=== PATIENT | female | born 1970 | race Caucasian/White ===

== ENCOUNTER 2019-10-13 20:21 | Emergency (ER) | payer OTHER, SELFPAY | END 2019-10-13 22:14 | disposition left against medical advice (07) | PROVIDERS: Emergency Provider Emergency Medicine; PCP Family Medicine | DX: Z53.8 Procedure and treatment not carried out for other reasons (principal) | CPT/HCPCS: 99199 ==

== ENCOUNTER 2020-10-05 18:10 | Emergency (ER) | payer OTHER, SELFPAY ==
[2020-10-05 18:15] VITALS: BP 119/71; PULSE 61; RESP 17; TEMP 36.7; O2SAT 99
[2020-10-05] MEDS: SODIUM CHLORIDE 0.9% IV 1,000 ML 999 ML IV CONT (18:45)
[2020-10-05] MEDS: ONDANSETRON INJ 4 MG/2 ML VIAL IV PUSH (18:45)
[2020-10-05 19:00] VITALS: BP 122/70; PULSE 80; RESP 18
[2020-10-05 19:09] LABS: Basophils Absolute Auto 0.01 K/mm3 (0.00-0.10); Basophils Percent Auto 0.1 % (0.0-1.0); Eosinophils Absolute Auto 0.01 K/mm3 (0.02-0.50); Eosinophils Percent Auto 0.1 % (1.0-6.0); Hematocrit 44.4 % (35.0-49.0); Hemoglobin 14.9 g/dL (12.0-15.0); Immature Granulocyte Absolute 0.04 K/mm3 (0.00-0.00); Immature Granulocyte Percent A 0.4 % (0.0-0.0); Lymphocytes Absolute Auto 2.93 K/mm3 (1.10-4.50); Lymphocytes Percent Auto 26.6 % (18.0-42.0); Mean Corpuscular HGB Conc 33.6 g/dL (32.0-36.0); Mean Corpuscular Hemoglobin 29.8 pg (27.0-31.0); Mean Corpuscular Volume 88.8 fL (78.0-102.0); Mean Platelet Volume 11.3 fl (9.2-11.8); Monocytes Absolute Auto 0.98 K/mm3 (0.10-0.90); Monocytes Percent Auto 8.9 % (2.0-11.0); Neutrophils Percent Auto 63.9 % (50.0-70.0); Platelet Count Result 319 K/mm3 (150-420); Red Cell Distribution Width 12.6 % (11.6-14.4)
--- NOTE | 2020-10-05 19:12 | ED.NAVMDI ---
HPI - Nausea/Vomiting/Diarrhea General Chief complaint: Nausea/Vomiting/Diarrhea Stated complaint: sick to stomach, headache Source: patient Mode of arrival: ambulatory Limitations: no limitations History of Present Illness HPI Narrative: 2 days of not feeling well. has ab cramps, nausea and diarrhea. has felt hot but no fevers. No resp sxs. mild headache, urinating more than normal. SUgars have been higher than normal, she usually rund in 200's and today it was 300. MD elicited complaint: nausea, diarrhea and abdominal pain (cramping) Onset (ago): day(s) (2) Location of pain: diffuse (cramping) Pain consistency: intermittent Severity: moderate Quality: cramping Exacerbating factors: none Relieving factors: none Associated symptoms: denies other symptoms, headaches and nausea/vomiting Treatment prior to arrival: other (taken pepto) Related Data Home Medications Medication Instructions Recorded Confirmed buspirone 15 mg PO DAILY 10/05/20 10/05/20 clonidine HCl 0.1 mg PO BID 10/05/20 10/05/20 gabapentin 800 mg PO TID 10/05/20 10/05/20 insulin glargine [Lantus Solostar 130 unit SUBCUT HS 10/05/20 10/05/20 U-100 Insulin] insulin lispro [Humalog KwikPen 30 unit SUBCUT TID 10/05/20 10/05/20 Insulin] metoprolol succinate 100 mg PO DAILY 10/05/20 10/05/20 naproxen 500 mg PO BID 10/05/20 10/05/20 olanzapine 20 mg PO DAILY 10/05/20 10/05/20 Allergies Allergy/AdvReac Type Severity Reaction Status Date / Time No Known Allergies Allergy Verified 10/05/20 18:27 Review of Systems Review of Systems: All systems reviewed & are unremarkable except as noted in HPI and below Constitutional: Constitutional: Denies chills, Reports fatigue, Denies fever(s) and Denies weakness Eyes: Eyes: Reports no additional eye complaints ENT: Reports system reviewed and no additional complaints, except as documented Cardiovascular: Cardiovascular: Reports no additional cardiovascular complaints Respiratory: Respiratory: Reports no additional respiratory complaints Gastrointestinal: Gastrointestinal: Reports abdominal pain, Denies bloating, Denies constipation, Reports heartburn, Reports diarrhea, Reports nausea and Reports vomiting Genitourinary: Genitourinary: Denies hematuria, Reports nocturia and Denies flank pain Musculoskeletal: Musculoskeletal: Reports no additional musculoskeletal complaints Neurologic: Reports system reviewed and no additional complaints, except as documented Psychiatric: Psychiatric: Reports no additional psychiatric complaints Endocrine: Endocrine: Reports no additional endocrine complaints Hematologic/Lymphatic: Hematologic/Lymphatic: Reports no additional hematologic/lymphatic complaints Allergic/Immunologic: Allergic/Immunologic: Reports no additional allergic/immunologic complaints PMF Past Medical History Medical History (Updated 10/05/20 @ 20:04 by Estefanía Donnelly MD) Diabetes Social History Social History (Updated 10/05/20 @ 19:17 by Estefanía Donnelly MD) Alcohol intake: never Substance use: never Living arrangements: with family Exam Const: General: healthy appearing, no acute distress and alert Nutritional Appearance: well nourished and obese Orientation/consciousness: patient oriented x3 HENMT: Head: normal to inspection Mouth: Yes moist mucous membranes Eyes: Pupils: Equal, round and reactive pupils present EOM: EOMs intact bilaterally Neck: Neck: normal visual inspection Chest: Chest palpation & inspection: normal inspection of the chest Resp: Effort & Inspection: normal respiratory effort Auscultation: clear to auscultation bilaterally Cardio: Rate: regular rate Rhythm: regular rhythm GI: GI Palp: Yes Soft to palpation and Yes Tenderness to palpation present (GI) (very mild discomfort generalized throughout abdomen) : General: Yes no CVA tenderness Back/Spine/Pelvis: Back: no CVA tenderness Skin: General skin exam: normal color Rash
[2020-10-05 19:23] LABS: Alanine Aminotransferase 23 U/L (14-59); Albumin Level 3.3 g/dL (3.4-5.0); Alkaline Phosphatase 275 U/L (46-116); Anion Gap 11 mmol/L (8-16); Aspartate Amino Transferase 10 U/L (15-37); Bilirubin,Total 0.2 mg/dL (0.00-1.00); Blood Urea Nitrogen 6 mg/dL (7-18); Calcium 8.9 mg/dL (8.5-10.1); Carbon Dioxide 27 mmol/L (21-32); Chloride 104 mmol/L (98-108); Estimated Glomerular Filt Rate > 60; Glucose 92 mg/dL (70-99); Lipase 118 U/L (73-393); Osmolality Calculated 291 mOsm/kg (285-295); Potassium 4.1 mmol/L (3.5-5.1); Sodium 142 mmol/L (136-145); Total Protein 6.9 g/dL (6.4-8.2)
[2020-10-05 19:27] LABS: SARS-CoV-2 RNA PCR Negative
[2020-10-05 19:54] LABS: Add Urine Microscopic? YES; Appearance Urine Clear (Clear); Bilirubin Urine Negative (Negative); Blood Urine Negative (Negative); Color Urine Yellow (Yellow); Glucose Urine UA Negative (Negative); Ketones Urine Trace (Negative); Leukocyte Esterase Ur Negative LEU/UL (Negative); Nitrate Urine Negative (Negative); Protein Urine Negative (Negative); Specific Grav Ur >= 1.030 (1.010-1.020); Urobilinogen Urine 0.2 mg/dL (0.2-1.0); pH Urine 5.5 (5.0-8.0)
[2020-10-05 19:55] LABS: RBC Urine 0-2 /hpf (0-2); WBC Urine 0-3 /hpf (0-3)
[2020-10-05 19:56] LABS: Bacteria Urine Trace /hpf; Squamous Epithelial Cell Urine Rare /hpf (Few)
[2020-10-05 20:08] VITALS: BP 122/70; PULSE 88; RESP 18; TEMP 36.6
== END 2020-10-05 20:12 | disposition home or self-care (01) ==
PROVIDERS: Emergency Provider Emergency Medicine; PCP Family Medicine
DX: K52.9 Noninfective gastroenteritis and colitis, unspecified (principal); Z20.822 Contact with and (suspected) exposure to COVID-19
CPT/HCPCS: 36415; 80053; 81001; 83690; 85025; 96361; 96374; 99283; 99284; C9803; J2405; J7030; U0003; U0005

== ENCOUNTER 2020-10-16 12:03 | Outpatient (CLI) | payer OTHER, SELFPAY ==
--- NOTE | ~2020-10-16 | XR_ITS ---
XR abdomen obstructive series DATE: 10/16/2020 12:35 INDICATION: Abdominal pain, nausea TECHNIQUE: Supine and upright AP views COMPARISON: None FINDINGS: The psoas shadows are intact. No visceromegaly is evident. There is no evidence of bowel ob struction. There is a fairly prominent amount of fecal material in the rectum and colon. No intraperitoneal free air. Multiple calcified pelvic phleboliths. Mild levoscoliosis and multilevel degenerative disc disease of the lumbar spine. IMPRESSION: Moderately prominent amount of fecal material in the colon and rectum but no evidence of bowel obstruction No intraperitoneal free air Reviewed, dictated and finalized at [facility]. Reviewed, dictated and finalized at location A. LE INSTALLER SUPERVISOR IMPRESSION: Moderately prominent amount of fecal material in the colon and rect um but no evidence of bowel obstruction No intraperitoneal free air
[2020-10-16 12:49] LABS: Basophils Absolute Auto 0.01 K/mm3 (0.00-0.10); Basophils Percent Auto 0.1 % (0.0-1.0); Eosinophils Absolute Auto 0.04 K/mm3 (0.02-0.50); Eosinophils Percent Auto 0.4 % (1.0-6.0); Hematocrit 44.8 % (35.0-49.0); Hemoglobin 15.1 g/dL (12.0-15.0); Immature Granulocyte Absolute 0.04 K/mm3 (0.00-0.00); Immature Granulocyte Percent A 0.4 % (0.0-0.0); Lymphocytes Absolute Auto 3.93 K/mm3 (1.10-4.50); Lymphocytes Percent Auto 34.9 % (18.0-42.0); Mean Corpuscular HGB Conc 33.7 g/dL (32.0-36.0); Mean Corpuscular Hemoglobin 30.1 pg (27.0-31.0); Mean Corpuscular Volume 89.2 fL (78.0-102.0); Mean Platelet Volume 11.7 fl (9.2-11.8); Monocytes Absolute Auto 1.05 K/mm3 (0.10-0.90); Monocytes Percent Auto 9.3 % (2.0-11.0); Neutrophils Absolute Auto 6.2 K/mm3 (1.7-7.2); Neutrophils Percent Auto 54.9 % (50.0-70.0); Platelet Count Result 290 K/mm3 (150-420); Red Blood Count 5.02 M/mm3 (4.20-5.40); Red Cell Distribution Width 12.7 % (11.6-14.4); White Blood Count 11.3 K/mm3 (4.8-10.8)
[2020-10-16 12:51] LABS: Add Urine Microscopic? NO; Appearance Urine Clear (Clear); Bilirubin Urine Negative (Negative); Blood Urine Negative (Negative); Color Urine Yellow (Yellow); Glucose Urine UA Negative (Negative); Ketones Urine Negative (Negative); Leukocyte Esterase Ur Negative (Negative); Nitrate Urine Negative (Negative); Protein Urine Negative (Negative); Specific Grav Ur >= 1.030 (1.010-1.020); Urobilinogen Urine 0.2 mg/dL (0.2-1.0)
[2020-10-16 13:11] LABS: Alanine Aminotransferase 29 U/L (14-59); Albumin Level 3.6 g/dL (3.4-5.0); Alkaline Phosphatase 376 U/L (46-116); Amylase 48 U/L (25-115); Anion Gap 10 mmol/L (8-16); Aspartate Amino Transferase 21 U/L (15-37); Bilirubin,Total 0.3 mg/dL (0.00-1.00); Blood Urea Nitrogen 9 mg/dL (7-18); Calcium 9.3 mg/dL (8.5-10.1); Carbon Dioxide 31 mmol/L (21-32); Chloride 102 mmol/L (98-108); Estimated Glomerular Filt Rate 57; Glucose 234 mg/dL (70-99); Lipase 136 U/L (73-393); Osmolality Calculated 302 mOsm/kg (285-295); Potassium 3.7 mmol/L (3.5-5.1); Sodium 143 mmol/L (136-145); Total Protein 6.8 g/dL (6.4-8.2)
[2020-10-16 15:34] LABS: Hemoglobin A1C 6.7 % (<5.7)
[2020-10-17] LABS: SARS-CoV-2 RNA PCR Negative
== END 2020-10-16 12:04 | disposition home or self-care (01) ==
PROVIDERS: PCP Family Medicine; Visit Provider Family Medicine
DX: R10.84 Generalized abdominal pain (principal); R51.9 Headache, unspecified; N39.46 Mixed incontinence; E10.65 Type 1 diabetes mellitus with hyperglycemia
CPT/HCPCS: 36415; 74019; 80053; 81003; 82150; 83036; 83690; 85025; 87077; 87086; 87088; C9803; U0003; U0005

== ENCOUNTER 2021-01-10 10:15 | Outpatient (CLI) | payer OTHER, SELFPAY ==
--- NOTE | ~2021-01-10 | XR_ITS ---
EXAMINATION: XR abdomen obstructive series EXAM DATE: 01/10/2021 11:04 INDICATION: Constipation for one month. TECHNIQUE: Frontal upright projection of the upper abdomen, frontal projection of the lower abdomen f or interpretation. Comparison is made to prior examination from 10/16/2020. FINDINGS: There is expected amount of colonic stool and gas. No small bowel dilation, nonobstructiv e bowel gas pattern. Calcifications in the pelvis are believed to be phleboliths. There is no orga nomegaly suspected. Mild to moderate lumbar levoscoliosis. Mild to moderate lumbar spondylosis and b ilateral hip primary osteoarthritis. There is no free intraperitoneal air. The lung bases are clear. IMPRESSION: Unremarkable bowel gas pattern. Reviewed, dictated and finalized at location A.
--- NOTE | ~2021-01-10 | XR_ITS ---
EXAMINATION: XR lumbar spine 2-3V EXAM DATE: 01/10/2021 11:05 INDICATION: LBP and down RT leg after twisting injury 1.5mo ago. TECHNIQUE: Lumber spine frontal, lateral, lateral L5-S1 projections for interpretation. Comparison is made to prior examination from 03/28/2014. FINDINGS: There are no acute fractures identified. The vertebral bodies are aligned in the AP dimen jose. There is mild upper lumbar levoscoliosis centered at the L2-3 level, where there is moderate di sc disease and moderate sized bridging endplate osteophytes. Moderate disc disease at L1-2 as well, o therwise mild lower lumbar disc disease. There is mild to moderate upper lumbar, moderate to severe l ower lumbar facet arthropathy. Sacrum, sacroiliac joints, sacral arcuate lines are intact. Paraspinal soft tissue is unremarkable. Compared to 2013, significant progression in spondylosis. IMPRESSION: 1. Moderate to severe lower lumbar facet arthropathy. 2. Moderate disc disease L-1-2 and L2-3. 3. Mild levoscoliosis. Reviewed, dictated and finalized at location A.
[2021-01-10 10:44] LABS: Add Urine Microscopic? YES; Appearance Urine Clear (Clear); Basophils Absolute Auto 0.01 K/mm3 (0.00-0.10); Basophils Percent Auto 0.1 % (0.0-1.0); Bilirubin Urine Negative (Negative); Blood Urine Negative (Negative); Color Urine Yellow (Yellow); Eosinophils Absolute Auto 0.02 K/mm3 (0.02-0.50); Eosinophils Percent Auto 0.1 % (1.0-6.0); Glucose Urine UA Negative (Negative); Hemoglobin 15.9 g/dL (12.0-15.0); Immature Granulocyte Absolute 0.06 K/mm3 (0.00-0.00); Immature Granulocyte Percent A 0.4 % (0.0-0.0); Ketones Urine Negative (Negative); Leukocyte Esterase Ur Trace (Negative); Mean Corpuscular HGB Conc 33.8 g/dL (32.0-36.0); Mean Corpuscular Hemoglobin 29.7 pg (27.0-31.0); Mean Corpuscular Volume 87.7 fL (78.0-102.0); Mean Platelet Volume 11.4 fl (9.2-11.8); Monocytes Absolute Auto 1.01 K/mm3 (0.10-0.90); Monocytes Percent Auto 7.5 % (2.0-11.0); Neutrophils Absolute Auto 8.5 K/mm3 (1.7-7.2); Neutrophils Percent Auto 62.9 % (50.0-70.0); Nitrate Urine Negative (Negative); Platelet Count Result 352 K/mm3 (150-420); Protein Urine Negative (Negative); Red Blood Count 5.36 M/mm3 (4.20-5.40); Red Cell Distribution Width 12.7 % (11.6-14.4); Specific Grav Ur <= 1.005 (1.010-1.020); Urobilinogen Urine 0.2 mg/dL (0.2-1.0); White Blood Count 13.5 K/mm3 (4.8-10.8)
[2021-01-10 10:48] LABS: Bacteria Urine Trace /hpf; RBC Urine None seen /hpf (0-2); Squamous Epithelial Cell Urine Few /hpf (Few); WBC Urine None seen /hpf (0-3)
[2021-01-10 11:28] LABS: Alanine Aminotransferase 31 U/L (14-59); Albumin Level 3.7 g/dL (3.4-5.0); Alkaline Phosphatase 306 U/L (46-116); Amylase 87 U/L (25-115); Anion Gap 10 mmol/L (8-16); Aspartate Amino Transferase 14 U/L (15-37); Bilirubin,Total 0.6 mg/dL (0.00-1.00); Blood Urea Nitrogen 6 mg/dL (7-18); Calcium 9.4 mg/dL (8.5-10.1); Carbon Dioxide 29 mmol/L (21-32); Chloride 103 mmol/L (98-108); Estimated Glomerular Filt Rate > 60; Glucose 51 mg/dL (70-99); Lipase 303 U/L (73-393); Osmolality Calculated 288 mOsm/kg (285-295); Potassium 3.7 mmol/L (3.5-5.1); Sodium 142 mmol/L (136-145); Total Protein 7.4 g/dL (6.4-8.2)
== END 2021-01-10 10:16 | disposition home or self-care (01) ==
LOC: CHSLAB 10:19
PROVIDERS: PCP Family Medicine; Visit Provider Family Medicine
DX: R10.84 Generalized abdominal pain (principal); R30.0 Dysuria; K59.00 Constipation, unspecified; M54.16 Radiculopathy, lumbar region
CPT/HCPCS: 36415; 72100; 74019; 80053; 81001; 82150; 83690; 85025; 87086; 87088

== ENCOUNTER 2021-02-04 14:59 | Outpatient (RCR) | payer OTHER, SELFPAY ==
--- NOTE | 2021-02-04 16:06 | PTOPEVAL ---
Thank you for referring Loni Yepez to [facility].? The patient is scheduled to be seen for therapy? ____x/week for ___ weeks. Please review, sign, date and return this plan of care IRMA. I agree with and certify that the following plan of care is medically necessary. Referring Physician Date Admitting Provider: Attending Provider: Jhonny Tan MD Referring Provider: *PT Outpatient Evaluation Start: 02/04/21 14:59 Freq: Status: Active Protocol: Document 02/04/21 14:59 ACR (Rec: 02/04/21 16:05 ACR [id number]) Therapy Assessment Status Assessment Status Assessment Status Evaluation Outpatient Past Medical History Cardiovascular History Hx Hypertension Yes Musculoskeletal History Hx Arthritis Yes Endocrine History Hx Diabetes Yes Reproductive History Hx Post Menopausal Yes Hx Tubal Ligation Yes Psychosocial History Hx Anxiety Yes Hx Bipolar Disorder Yes Hx Depression Yes Evaluation Information Problem Diagnosis Lumbar radiculopathy Onset 12/31/20 Subjective Information The patient states that she Query Text:As Reported By Patient/ 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 The patient states it is difficulty to bend over, kneel down, ascending and descending stairs, and walking for a period of time. Patient states she is having pain in groin, outside of the hip, and to the ankle. Patient states that her goal for therapy is to decrease pain. Patient states she is taking vicodine as needed and flexoral twice a day. Patient states she is working but is light duty. Patient states that the pain wakes up Prior Level of Function Activity Level (Last 3 Months) Occupation RA at [employer] Hand Dominance Right Activity of Daily Living Ability Independent Indoor/Home Mobility Independent Community Mobility Independent Stairs Ability Independent Functional Cognition (Planning, Shopping Independent , Taking Medications) Cooking Yes Clean
--- NOTE | 2021-04-23 07:11 | PCPTNOTE ---
The patient has not arrived to therapy in 2 months and has been called many times. The patient is to be discharged at this time. Please refer to most recent treatment note for discharge status. Thank you, MARCOS ArcosT
== END 2021-02-12 09:37 | disposition home or self-care (01) ==
LOC: CHSPT 14:59
PROVIDERS: PCP Family Medicine; Visit Provider Family Medicine
DX: M54.16 Radiculopathy, lumbar region (principal)
CPT/HCPCS: 97014; 97110; 97161; G0283

== ENCOUNTER 2021-03-22 19:32 | Emergency (ER) | payer OTHER, SELFPAY ==
[2021-03-22 19:55] VITALS: BP 120/88; PULSE 88; RESP 16; TEMP 37; O2SAT 98
[2021-03-22] MEDS: IBUPROFEN 400 MG TABLET 800 MG PO (20:50)
--- NOTE | 2021-03-22 20:51 | PC.NURSE ---
patient in marie very loud asking when she would be seen, MD with an overdose & another with chest pain, patient very impatient, and unhappy with the wait
--- NOTE | 2021-03-22 20:53 | ED.GENADULT ---
HPI - General Adult General Chief complaint: Unspecified Stated complaint: knots under arms Time Seen by Provider: 03/22/21 19:57 Source: patient and RN notes reviewed Mode of arrival: ambulatory Limitations: no limitations History of Present Illness MD complaint: bilateral axillae bumps with scant pustules seen. no documented fever. Onset (ago): day(s) Location: upper extremity Radiation: non-radiation Severity: mild Severity scale (1-10): 2 Quality: dull Pain Consistency: constant Relieving factors: none Exacerbating factors: movement Associated symptoms: denies other symptoms and rash Treatments prior to arrival: none Related Data Home Medications Medication Instructions Recorded Confirmed buspirone 15 mg PO DAILY 10/05/20 03/22/21 clonidine HCl 0.1 mg PO BID 10/05/20 03/22/21 gabapentin 800 mg PO TID 10/05/20 03/22/21 insulin glargine [Lantus Solostar 130 unit SUBCUT HS 10/05/20 03/22/21 U-100 Insulin] insulin lispro [Humalog KwikPen 30 unit SUBCUT TID 10/05/20 03/22/21 Insulin] metoprolol succinate 100 mg PO DAILY 10/05/20 03/22/21 Allergies Allergy/AdvReac Type Severity Reaction Status Date / Time No Known Allergies Allergy Verified 10/05/20 18:27 Review of Systems Review of Systems: All systems reviewed & are unremarkable except as noted in HPI and below Constitutional: Constitutional: Reports as per HPI and Reports no additional constitutional complaints Eyes: Eyes: Reports as per HPI and Reports no additional eye complaints ENT: Reports system reviewed and no additional complaints, except as documented and Reports as per HPI Cardiovascular: Cardiovascular: Reports as per HPI and Reports no additional cardiovascular complaints Respiratory: Respiratory: Reports as per HPI and Reports no additional respiratory complaints Gastrointestinal: Gastrointestinal: Reports as per HPI and Reports no additional gastrointestinal complaints Genitourinary: Genitourinary: Reports no additional female genitourinary complaints and Reports as per HPI Musculoskeletal: Musculoskeletal: Reports no additional musculoskeletal complaints and Reports as per HPI Integumentary/Breasts: Skin/Breast: Reports system reviewed and no additional complaints, except as docu and Reports as per HPI Neurologic: Reports system reviewed and no additional complaints, except as documented and Reports as per HPI Psychiatric: Psychiatric: Reports no additional psychiatric complaints and Reports as per HPI Endocrine: Endocrine: Reports no additional endocrine complaints and Reports as per HPI Hematologic/Lymphatic: Hematologic/Lymphatic: Reports no additional hematologic/lymphatic complaints and Reports as per HPI Allergic/Immunologic: Allergic/Immunologic: Reports no additional allergic/immunologic complaints and Reports as per HPI [facility] Past Medical History Medical History (Updated 03/30/21 @ 02:32 by Amisha Fowler MD) Anhidrosis Diabetes Social History Social History (Updated 10/05/20 @ 19:17 by Estefanía Donnelly MD) Alcohol intake: never Substance use: never Exam Const: General: cooperative, healthy appearing, comfortable, no acute distress and well developed Nutritional Appearance: obese Orientation/consciousness: oriented to person, oriented to place and oriented to time Limitations: no limitations HENMT: Head: normal to inspection, normocephalic and atraumatic Ears: hearing grossly normal bilaterally and external ears normal General nose exam: Normal external nose present and Normal nares present Mouth: Yes moist mucous membranes Teeth and gingiva: dentition normal Throat: posterior oropharynx normal Eyes: General: appearance normal, both eyes and all related structures Cornea: corneas normal Pupils: Equal, round and reactive pupils present EOM: EOMs intact bilaterally Neck: Neck: normal visual inspection, full ROM and no lymphadenopathy Chest: Chest palpation & inspection: normal inspecti
[2021-03-22 21:08] VITALS: BP 112/80; PULSE 78; RESP 18; TEMP 36.6; O2SAT 96
== END 2021-03-22 21:09 | disposition home or self-care (01) ==
PROVIDERS: Emergency Provider Emergency Medicine; PCP Family Medicine
DX: L74.4 Anhidrosis (principal)
CPT/HCPCS: 99283; A9270

== ENCOUNTER 2021-05-10 10:34 | Outpatient (CLI) | payer OTHER, SELFPAY ==
[2021-05-10 11:24] LABS: Influenza Control Valid (Valid); SARS-CoV-2 RNA PCR Positive (Negative)
== END 2021-05-10 10:35 | disposition home or self-care (01) ==
LOC: CHSLAB 10:36
PROVIDERS: PCP Family Medicine; Visit Provider Nurse Practitioner Family
DX: U07.1 COVID-19 (principal); J06.9 Acute upper respiratory infection, unspecified
CPT/HCPCS: 87804; C9803; U0003; U0005

== ENCOUNTER 2021-05-16 10:22 | Outpatient (CLI) | payer OTHER, SELFPAY ==
[2021-05-16 11:10] VITALS: BP 142/98; PULSE 74; RESP 16; TEMP 36.6; O2SAT 97
[2021-05-16] MEDS: FAMOTIDINE 20 MG TABLET PO (11:15)
[2021-05-16] MEDS: ACETAMINOPHEN 325 MG TABLET 650 MG PO (11:15)
[2021-05-16] MEDS: diphenhydrAMINE HCl CAP 25 MG CAPSULE PO (11:15)
[2021-05-16 13:30] VITALS: BP 150/92; PULSE 74; RESP 18; TEMP 36.4; O2SAT 96
== END 2021-05-16 10:23 | disposition home or self-care (01) ==
LOC: CHSTREATRM 10:31
PROVIDERS: PCP Family Medicine; Visit Provider Nurse Practitioner Family
DX: Z23 Encounter for immunization (principal); U07.1 COVID-19
CPT/HCPCS: A9270; J7050; M0243; M0245

== ENCOUNTER 2021-05-20 13:13 | Outpatient (CLI) | payer OTHER, SELFPAY ==
--- NOTE | ~2021-05-20 | XR_ITS ---
XR chest 2V DATE: 05/20/2021 13:45 INDICATION: Acute nasopharyngitis. Covid-positive. TECHNIQUE: PA and lateral views COMPARISON: 04/07/2010 portable AP chest FINDINGS: Normal heart size. No hilar or mediastinal enlargement. Bilateral hyperinflation. No pulmon shon infiltrate or consolidation, pleural effusion or pulmonary vascular congestion or pneumothorax. Diffuse osteopenia. Mild scoliosis and degenerative change of the thoracic spine. IMPRESSION: No active cardiopulmonary disease Reviewed, dictated and finalized at location B.
[2021-05-20 15:30] LABS: Influenza A QL RT-PCR Negative (Negative); Influenza B QL RT-PCR Negative (Negative); SARS-CoV-2 RNA PCR Positive (Negative)
== END 2021-05-20 13:14 | disposition home or self-care (01) ==
LOC: CHSLAB 13:16
PROVIDERS: PCP Family Medicine; Visit Provider Family Medicine
DX: U07.1 COVID-19 (principal)
CPT/HCPCS: 71046; 87081; 87502; 87880; C9803; U0003; U0005

== ENCOUNTER 2021-07-26 17:57 | Emergency (ER) | payer OTHER, SELFPAY ==
--- NOTE | ~2021-07-26 | XR_ITS ---
EXAMINATION: XR pelvis 1-2V DATE: 07/26/2021 18:58 INDICATION: Pelvis injury and pain. TECHNIQUE: An anteroposterior view of the pelvis was obtained. COMPARISON: None. FINDINGS: Bone alignment is normal. No fracture. There is mild osteoarthritis of the hips. There is m ild lumbar spondylosis. IMPRESSION: 1. Mild osteoarthritis of the hips. Reviewed, dictated and finalized at location A. PLANT SUPERVISOR
--- NOTE | ~2021-07-26 | XR_ITS ---
EXAMINATION: XR shoulder RT min 2V DATE: 07/26/2021 19:35 INDICATION: Right shoulder injury. TECHNIQUE: 4 views of right shoulder were obtained. COMPARISON: None. FINDINGS: Bone alignment is normal. There are chip fractures of coracoid process of the scapula and a t the clavicle at the attachments of the coracoclavicular ligament. Glenohumeral joint is normal. The re is mild acromioclavicular joint osteoarthritis. IMPRESSION: 1. Chip fractures at the attachments of the coracoclavicular ligament. Reviewed, dictated and finalized at location A. ICIAN VICE PRESIDENT
--- NOTE | ~2021-07-26 | CT_ITS ---
EXAMINATION: CT brain wo con DATE: 07/26/2021 19:34 INDICATION: Head injury. TECHNIQUE: Computed tomography (CT) of the head was performed without intravenous contrast. The mA wa s adjusted according to patient size. Iterative reconstruction technique was employed. The dose-lengt h product was 681.00 mGy-cm. COMPARISON: Head CT 06/17/2009 FINDINGS: There is no intracranial hemorrhage, acute infarction, or abnormal intracranial mass lesion . The ventricles are normal in size. There is mild mucosal thickening in sphenoid sinus. The mastoid air cells are normal. The orbits are normal. IMPRESSION: 1. Normal brain. Reviewed, dictated and finalized at location A. ELIGIBILITY IMPRESSION: 1. Normal brain.
--- NOTE | ~2021-07-26 | CT_ITS ---
EXAMINATION: CT cervical spine wo con DATE: 07/26/2021 19:34 INDICATION: Head injury. TECHNIQUE: Computed tomography (CT) of the cervical spine was performed without intravenous contrast. Automated exposure control and iterative reconstruction technique were employed. The dose-length pro duct was 681.00 mGy-cm. 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 Vertebral body heights are normal. There is mildly decreased disc height at C4-C5 and C5-C6 and moderately decreased disc height at C6-C7. The fo llowing disc levels are specifically discussed: C2-C3: There is no uncovertebral joint osteoarthritis. There is no facet joint osteoarthritis. There is no neural foraminal stenosis. There is no central canal stenosis. C3-C4: There is mild left uncovertebral joint osteoarthritis. There is mild right and moderate left f acet joint osteoarthritis. There is mild left neural foraminal stenosis. There is no central canal st enosis. C4-C5: There is mild bilateral uncovertebral joint osteoarthritis. There is severe bilateral facet miles int osteoarthritis. There is mild bilateral neural foraminal stenosis. There is mild central canal st enosis. C5-C6: There is no uncovertebral joint osteoarthritis. There is mild bilateral facet joint osteoarthr itis. There is no neural foraminal stenosis. There is no central canal stenosis. C6-C7: There is mild bilateral uncovertebral joint osteoarthritis. There is mild left facet joint ost eoarthritis. There is mild right neural foraminal stenosis. There is mild central canal stenosis. C7-T1: There is no uncovertebral joint osteoarthritis. There is mild right and severe left facet join t osteoarthritis. There is mild left neural foraminal stenosis. There is no central canal stenosis. IMPRESSION: 1. No fracture. 2. Moderate cervical spondylosis. Reviewed, dictated and finalized at location A. WORKER
--- NOTE | ~2021-07-26 | XR_ITS ---
EXAMINATION: XR lumbar spine 2-3V DATE: 07/26/2021 19:34 INDICATION: Low back pain. TECHNIQUE: 3 views of lumbar spine were obtained. COMPARISON: Lumbar spine radiographs 01/10/2021 FINDINGS: There is 11 degrees levoscoliosis of lumbar spine. There is 3 mm retrolisthesis of L2 on L3 . Vertebral body heights are normal. There is moderately decreased disc height at L1-L2 and L2-L3 wit h endplate remodeling. There is severe facet joint osteoarthritis in lower lumbar spine. IMPRESSION: 1. Moderate lumbar spondylosis, stable from 01/10/21. 2. Lumbar levoscoliosis. Reviewed, dictated and finalized at location A. NESS SERVICES SALES AGENT
--- NOTE | ~2021-07-26 | XR_ITS ---
EXAMINATION: XR chest 1V portable DATE: 07/26/2021 18:57 INDICATION: Chest injury. Chest pressure. TECHNIQUE: A single frontal view of the chest was obtained. COMPARISON: Chest 2 views 05/20/2021 FINDINGS: The chest demonstrates clear lungs without pneumonia, pleural effusion, or pneumothorax. Th e heart size is normal. There are prominent paracardial fat pads. IMPRESSION: 1. No acute cardiopulmonary disease. Reviewed, dictated and finalized at location A. CAR SALESPERSON
[2021-07-26 18:12] VITALS: BP 186/107; PULSE 89; RESP 16; TEMP 36.3; O2SAT 98
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
--- NOTE | 2021-07-26 18:23 | ECG_ITS ---
Measurements Intervals [place] Rate: 83 P: 34 CO: 124 QRS: 8 QRSD: 93 T: 77 QT: 303 QTc: 358 Interpretive Statements SINUS RHYTHM LEFT VENTRICULAR HYPERTROPHY AND ST-T CHANGE BASELINE ARTIFACT- II, III, AVR, AVL, AVF BORDERLINE ECG Electronically Signed On 07-26-2021 20:13:19 ENGINEERING ASSOCIATE by Epifanio Vu D.O.
[2021-07-26 18:42] LABS: Basophils Absolute Auto 0.01 K/mm3 (0.00-0.10); Basophils Percent Auto 0.1 % (0.0-1.0); Eosinophils Absolute Auto 0.22 K/mm3 (0.02-0.50); Eosinophils Percent Auto 1.4 % (1.0-6.0); Hematocrit 44.9 % (35.0-49.0); Hemoglobin 15.2 g/dL (12.0-15.0); Immature Granulocyte Absolute 0.06 K/mm3 (0.00-0.00); Immature Granulocyte Percent A 0.4 % (0.0-0.0); Lymphocytes Absolute Auto 4.26 K/mm3 (1.10-4.50); Lymphocytes Percent Auto 27.1 % (18.0-42.0); Mean Corpuscular HGB Conc 33.9 g/dL (32.0-36.0); Mean Corpuscular Hemoglobin 30.2 pg (27.0-31.0); Mean Corpuscular Volume 89.1 fL (78.0-102.0); Mean Platelet Volume 11.5 fl (9.2-11.8); Monocytes Absolute Auto 1.13 K/mm3 (0.10-0.90); Monocytes Percent Auto 7.2 % (2.0-11.0); Neutrophils Percent Auto 63.8 % (50.0-70.0); Platelet Count Result 318 K/mm3 (150-420); Red Blood Count 5.04 M/mm3 (4.20-5.40); Red Cell Distribution Width 12.5 % (11.6-14.4); White Blood Count 15.7 K/mm3 (4.8-10.8)
[2021-07-26 19:00] LABS: Alanine Aminotransferase 28 U/L (14-59); Albumin Level 3.4 g/dL (3.4-5.0); Alkaline Phosphatase 297 U/L (46-116); Anion Gap 10 mmol/L (8-16); Aspartate Amino Transferase 14 U/L (15-37); Bilirubin,Total 0.2 mg/dL (0.00-1.00); Blood Urea Nitrogen 9 mg/dL (7-18); Calcium 8.4 mg/dL (8.5-10.1); Carbon Dioxide 29 mmol/L (21-32); Chloride 105 mmol/L (98-108); Estimated CRCL calculation 77 ml/min; Estimated Glomerular Filt Rate > 60; Glucose 64 mg/dL (70-99); Osmolality Calculated 294 mOsm/kg (285-295); Sodium 144 mmol/L (136-145); Total Protein 7.1 g/dL (6.4-8.2); Troponin I 9.9 ng/L (0.00-60.4)
[2021-07-26] MEDS: ONDANSETRON HCL ODT 4 MG TABLET PO (20:00)
[2021-07-26] MEDS: HYDROmorphone HCL INJ (*CRX) 2 MG/ML VIAL 1 MG IM (20:00)
--- NOTE | 2021-07-26 20:12 | PC.NURSE ---
reviewing xrays patient states I need a prescription for pain pills then. MD stated family MD would have to provide, patient very upset could not have pain pills
[2021-07-26 20:26] VITALS: BP 140/78; PULSE 78; RESP 18; TEMP 36.6; O2SAT 99
== END 2021-07-26 20:28 | disposition home or self-care (01) ==
PROVIDERS: Emergency Provider Internal Medicine Critical Care Medicine; PCP Family Medicine
DX: S42.134A Nondisplaced fracture of coracoid process, right shoulder, initial encounter for closed fracture (principal); M47.9 Spondylosis, unspecified; E16.2 Hypoglycemia, unspecified; E87.6 Hypokalemia; T74 Adult and child abuse, neglect and other maltreatment, confirmed
CPT/HCPCS: 36415; 70450; 71045; 72100; 72125; 72170; 73030; 80053; 84484; 85025; 93005; 96372; 99283; 99284; A4565; A9270; J1170

== ENCOUNTER 2022-02-27 14:13 | Outpatient (CLI) | payer OTHER, SELFPAY ==
--- NOTE | ~2022-02-27 | XR_ITS ---
EXAMINATION: [id number] INDICATION: Chest pain TECHNIQUE: A frontal view of the chest and four views of the left ribs were obtained. COMPARISON: 05/20/2021 FINDINGS: The lungs are free of acute opacities. No pleural effusion or pneumothorax. The cardiomedia stinal silhouette is normal. No displaced rib fracture is identified. IMPRESSION: 1. No acute cardiopulmonary abnormality or evidence of displaced rib fracture. Reviewed, dictated and finalized at location B.
[2022-02-27 14:29] LABS: Basophils Absolute Auto 0.01 K/mm3 (0.00-0.10); Basophils Percent Auto 0.1 % (0.0-1.0); Eosinophils Absolute Auto 0.32 K/mm3 (0.02-0.50); Eosinophils Percent Auto 2.6 % (1.0-6.0); Hematocrit 46.3 % (35.0-49.0); Hemoglobin 15.3 g/dL (12.0-15.0); Immature Granulocyte Absolute 0.06 K/mm3 (0.00-0.00); Immature Granulocyte Percent A 0.5 % (0.0-0.0); Lymphocytes Absolute Auto 3.26 K/mm3 (1.10-4.50); Lymphocytes Percent Auto 26.8 % (18.0-42.0); Mean Corpuscular Hemoglobin 29.9 pg (27.0-31.0); Mean Corpuscular Volume 90.4 fL (78.0-102.0); Mean Platelet Volume 11.5 fl (9.2-11.8); Monocytes Absolute Auto 0.95 K/mm3 (0.10-0.90); Monocytes Percent Auto 7.8 % (2.0-11.0); Neutrophils Absolute Auto 7.6 K/mm3 (1.7-7.2); Neutrophils Percent Auto 62.2 % (50.0-70.0); Platelet Count Result 326 K/mm3 (150-420); Red Blood Count 5.12 M/mm3 (4.20-5.40); Red Cell Distribution Width 12.5 % (11.6-14.4); White Blood Count 12.2 K/mm3 (4.8-10.8)
[2022-02-27 14:39] LABS: Creatinine Urine 47.45 mg/dL (40-278); MALB Creatinine Ratio 27.3 mg/g (0-30); Microalbumin Urine Random < 13.0 mg/L
[2022-02-27 14:53] LABS: Alanine Aminotransferase 22 U/L (14-59); Albumin Level 3.4 g/dL (3.4-5.0); Alkaline Phosphatase 365 U/L (46-116); Anion Gap 4 mmol/L (8-16); Aspartate Amino Transferase 12 U/L (15-37); Bilirubin,Total 0.2 mg/dL (0.00-1.00); Blood Urea Nitrogen 6 mg/dL (7-18); Calcium 8.6 mg/dL (8.5-10.1); Carbon Dioxide 31 mmol/L (21-32); Chloride 103 mmol/L (98-108); Estimated Glomerular Filt Rate > 60; Glucose 112 mg/dL (70-99); Osmolality Calculated 284 mOsm/kg (285-295); Potassium 3.7 mmol/L (3.5-5.1); Sodium 138 mmol/L (136-145); Thyroid Stimulating Hormone 1.11 uIU/mL (0.36-3.74); Total Protein 6.8 g/dL (6.4-8.2)
[2022-02-28 14:27] LABS: Hemoglobin A1C 5.8 % (<5.7)
== END 2022-02-27 14:14 | disposition home or self-care (01) ==
LOC: CHSLAB 14:16
PROVIDERS: PCP Family Medicine; Visit Provider Family Medicine
DX: E10.65 Type 1 diabetes mellitus with hyperglycemia (principal); R07.89 Other chest pain
CPT/HCPCS: 36415; 71101; 80053; 82043; 83036; 84443; 85025

== ENCOUNTER 2023-03-19 12:19 | Outpatient (CLI) | payer OTHER, SELFPAY | END 2023-03-19 12:20 | disposition home or self-care (01) | LOC: CHSLAB 12:21 | PROVIDERS: PCP Family Medicine; Visit Provider Family Medicine | DX: S32.000D Wedge compression fracture of unspecified lumbar vertebra, subsequent encounter for fracture with routine healing (principal) | CPT/HCPCS: 36415; 80307; 80349; G0480 ==